=== PATIENT | male | born 1995 | race Caucasian/White ===

== ENCOUNTER 2017-03-13 21:17 | Emergency (ER) | payer MEDICAID, OTHER ==
[2017-03-13 21:18] VITALS: BMI 25.0
[2017-03-13 21:32] VITALS: BP 123/76; PULSE 79; RESP 18; TEMP 99.1
[2017-03-13] MEDS ORDERED: DiphenhydrAMINE 50 mg/ml Inj IVP STA ×2 (21:42→23:44)
[2017-03-13] MEDS ORDERED: Sodium Chloride 0.9% 1,000 ML IV STA (21:42)
--- NOTE | 2017-03-14 00:58 | ED PDOC ---
Arrival/HPI - General Historian: Patient - History of Present Illness Time/Duration: Prior to Arrival Symptom Onset: Sudden Symptom Course: Improving - General Chief Complaint: Allergic Reaction Time Seen by Provider: 03/13/17 21:42 - History of Present Illness Narrative History of Present Illness (Text): 03/14/17 00:53 21-year-old male presents today with a possible allergic reaction. Patient states symptoms started after taking a new protein shake. Patient states once he completed working out today he tried a new protein shake and suddenly felt like his throat was closing and he was having difficulty speaking. Patient states symptoms have improved since arrival in the emergency room. He denies chest pain or shortness of breath. Denies fevers or chills. Denies rash. Denies pruritus. Patient states he now just has an irritation in the throat after vomiting up the protein shake. (Zenobia Chatman) Past Medical History - Provider Review Nursing Documentation Reviewed: Yes - Travel History Have you recently traveled outside [place] w/in the past 3 mons?: No - Past History Past History: No Previous - Infectious Disease Hx of Infectious Diseases: None - Tetanus Immunization Tetanus Immunization: Up to Date - Past Medical History Past Medical History: No Previous - Cardiac Hx Cardiac Disorders: No - Pulmonary Hx Respiratory Disorders: No - Neurological Hx Neurological Disorder: No - HEENT Hx HEENT Disorder: No - Renal Hx Renal Disorder: No - Endocrine/Metabolic Hx Endocrine Disorders: No - Hematological/Oncological Hx Blood Disorders: Yes (ELEVATED LFT'S) Hx Blood Transfusion Reaction: No - Integumentary Hx Dermatological Disorder: No - Musculoskeletal/Rheumatological Hx Musculoskeletal Disorders: No Hx Falls: No - Gastrointestinal Hx Gastrointestinal Disorders: Yes Hx Colitis: Yes (ULCERATIVE) HX Swallowing Problems: Yes Other/Comment: RECTAL BLEEDING - Genitourinary/Gynecological Hx Genitourinary Disorders: No - Psychiatric Hx Psychophysiologic Disorder: No Hx Substance Use: No - Past Surgical History Past Surgical History: No Previous - Anesthesia Hx Anesthesia: Yes Hx Anesthesia Reactions: No Hx Malignant Hyperthermia: No - Suicidal Assessment Feels Threatened In Home Enviroment: No Family/Social History - Physician Review Nursing Documentation Reviewed: Yes Family/Social History: Unknown Family HX Smoking Status: Never Smoked Hx Alcohol Use: No Hx Substance Use: No Hx Substance Use Treatment: No Allergies/Home Meds Allergies/Adverse Reactions: Allergies No Known Allergies Allergy (Verified 06/15/16 15:16) Home Medications: Home Meds Medication Instructions Recorded Confirmed Mesalamine [Apriso] 4 tab PO DAILY 07/30/15 03/13/17 Adalimumab [Humira Pen] 40 mg SQ .QOTHERWEEK 06/02/16 03/13/17 Review of Systems - Review of Systems Constitutional: absent: Fatigue, Fevers ENT: Sore Throat. absent: Sinus Congestion Respiratory: SOB. absent: Cough Cardiovascular: absent: Chest Pain, Palpitations Gastrointestinal: Nausea, Vomiting. absent: Abdominal Pain Genitourinary Male: absent: Dysuria Musculoskeletal: absent: Arthralgias Skin: absent: Rash, Pruritis Neurological: absent: Headache, Dizziness Psychiatric: absent: Anxiety, Depression, Suicidal Ideation Physical Exam Vital Signs Reviewed: Yes Temperature: Afebrile Blood Pressure: Normal Pulse: Regular Respiratory Rate: Normal Appearance: Positive for: Well-Appearing, Non-Toxic, Comfortable Pain Distress: None Mental Status: Positive for: Alert and Oriented X 3 - Systems Exam Head: Present: Atraumatic Conjunctiva: Present: Normal Mouth: Present: Moist Mucous Membranes Pharnyx: Present: Normal. No: ERYTHEMA, EXUDATE, TONSILS ENLARGED, Peritonsilar Swelling, Uvular Deviation, Muffled/Hoarse Voice, Soft Palate/ Uvular Edema Nose (External): Present: Atraumatic Nose (Internal): Present: Normal Inspection Neck: Present: Normal Range of Motion Respiratory/Chest: Present: Clear to Auscultation. No: Wheezes, Retracting, Rhonchi, Tachypneic Cardiovascular: Present: Regular Rate and Rhythm Abdomen: Present: Normal Bowel Sounds. No: Tenderness, Distention, Peritoneal Signs, Rebound, Guarding Back: Present: Normal Inspection. No: Midline Tenderness, Paraspinal Tenderness Upper Extremity: Present: Normal Inspection Lower Extremity: Present: Normal Inspection Neurological: Present: GCS=15 Skin: Present: Warm, Dry, Normal Color. No: Rashes Psychiatric: Present: Alert, Oriented x 3 Medical Decision Making ED Course and Treatment: 03/14/17 00:59 Patient is nontoxic well-appearing in no distress with stable vital signs no angioedema. Lungs are clear to auscultation bilaterally there is no wheezing noted. The airway is patent Benadryl 25 mg IV Solu-Medrol 125 mg IV Pepcid 20 mg IV pt feeling better; still c/o slight burning irritation in throat; addition 25mg benadryl given IVp. Patient reassessment: After medications patient is feeling much better the lungs are clear to auscultation bilaterally the airway is patent the patient is speaking in full sentences. I advised taking Benadryl every 6 hours as needed for itch as well as prednisone daily x4 days. Advised patient to follow up with primary care physician within the next 2 days and return if symptoms worsen persist or if new symptoms develop. Patient verbalizes understanding of discharge instructions and need for immediate followup. all aspects of this case were discussed the attending of record. Impression :Allergic reaction Benadryl every 6 hours as needed for itch Prednisone once daily x4 days Pepcid one tablet daily Follow up with the primary care physician tomorrow Return if symptoms worsen persist or if new symptoms develop: Shortness of breath, feeling of throat closing, difficulty speaking or any other concerning symptoms develop (Zenobia Chatman) - Medication Orders Current Medication Orders: Discontinued Medications Diphenhydramine HCl (Benadryl) 25 mg IVP STAT STA Stop: 03/13/17 21:43 Last Admin: 03/13/17 22:14 Dose: 25 mg Diphenhydramine HCl (Benadryl) 25 mg IVP STAT STA Stop: 03/13/17 23:45 Last Admin: 03/14/17 00:18 Dose: 25 mg Famotidine (Pepcid) 20 mg IVP STAT STA Stop: 03/13/17 21:43 Last Admin: 03/13/17 22:13 Dose: 20 mg Sodium Chloride (Sodium Chloride 0.9%) 1,000 mls @ 999 mls/hr IV .Q1H1M STA Stop: 03/13/17 22:42 Last Admin: 03/13/17 22:14 Dose: 999 mls/hr Methylprednisolone (Solu-Medrol) 125 mg IVP STAT STA Stop: 03/13/17 21:43 Last Admin: 03/13/17 22:15 Dose: 125 mg Disposition/Present on Arrival - Present on Arrival Any Indicators Present on Arrival: No History of DVT/PE: No History of Uncontrolled Diabetes: No Urinary Catheter: No History of Decub. Ulcer: No History Surgical Site Infection Following: None - Disposition Have Diagnosis and Disposition been Completed?: Yes Disposition Time: 01:01 Patient Plan: Discharge - Disposition Diagnosis: Allergic reaction Disposition: HOME/ ROUTINE Condition: GOOD Discharge Instructions (ExitCare): General Allergic Reaction (ED) Additional Instructions: Benadryl every 6 hours as needed for itch Prednisone once daily x4 days Pepcid one tablet daily Follow up with the primary care physician tomorrow Return if symptoms worsen persist or if new symptoms develop: Shortness of breath, feeling of throat closing, difficulty speaking or any other concerning symptoms develop Prescriptions: DiphenhydrAMINE [Benadryl] 25 mg PO Q6H #20 cap Famotidine [Pepcid] 20 mg PO DAILY #30 tab predniSONE [predniSONE Tab] 3 tab PO DAILY #12 tab Referrals: Lissa Fowler MD [Primary Care Provider] - Follow up with primary Forms: WORK NOTE
[2017-03-14 01:53] VITALS: O2SAT 99
== END 2017-03-14 00:20 | disposition home or self-care (01) ==
LOC: ED 21:17
DX: T78.49XA Other allergy, initial encounter (principal); X58.XXXA Exposure to other specified factors, initial encounter
CPT/HCPCS: 96374; 96375; 96376; 99281; J1200; J2930; J7040